=== PATIENT | female | born 1950 | race Caucasian/White ===

== ENCOUNTER 2021-04-25 10:26 | Emergency (ER) | payer OTHER, MEDICAID ==
[~2021-04-25] VITALS: Ht 160 cm; Wt 69.8 kg
[~2021-04-25 10:26] MED LIST: PROTONIX40 M1 PO; REMERON15 MG PO
[2021-04-25 10:53] LABS: ABSOLUTE LYMPHOCYTES 5.2 thou/uL (0.8-5.3); ABSOLUTE NEUTROPHILS 7.1 thou/uL (1.6-8.1); BASOPHILS 0.3 %; EOSINOPHILS 0.3 %; HEMATOCRIT 34.4 % (37.0-47.0); HEMOGLOBIN 11.5 gm/dL (12.0-15.0); LYMPHOCYTES 38.8 %; MCH 30.2 pg (26.0-34.0); MCHC 33.3 g/dL (28.0-37.0); MCV 90.6 fL (80.0-100.0); MONOCYTES 7.6 %; MPV 7.8 fl. (7.2-11.1); NUCLEATED RBCS 0 /100WBC; PLATELET COUNT* 198 thou/uL (150-400); RDW-CV 13.2 % (10.5-14.5); WBC 13.3 thou/uL (4.0-11.0)
[2021-04-25] MEDS ORDERED: PRINIVIL40 MG PO (10:59)
[2021-04-25] MEDS ORDERED: CARVEDILOL3.125 MG PO (10:59)
[2021-04-25] MEDS ORDERED: DULOXETINE HCL60 MG PO (10:59)
[2021-04-25] MEDS ORDERED: COLESTIPOL HCL1 G1 PO (11:00)
[2021-04-25] MEDS ORDERED: CELECOXIB100 MG PO (11:00)
[2021-04-25 11:01] LABS: CALCIUM 8.1 mg/dL (8.5-10.1); CREATININE 1.5 mg/dL (0.6-1.3); POTASSIUM 3.8 mmol/L (3.5-5.1)
[2021-04-25] MEDS ORDERED: ASA81BEC PO (11:01)
[2021-04-25] MEDS ORDERED: LIPITOR40 MG PO (11:01)
[2021-04-25 11:06] LABS: ALBUMIN 3.5 g/dL (3.4-5.0); TOTAL BILIRUBIN 0.3 mg/dL (<0.1-1.0); TOTAL PROTEIN 6.6 g/dL (6.4-8.2)
--- NOTE | 2021-04-25 11:50 | EKG ---
[place] [address] ELECTROCARDIOGRAM REPORT Name: MARC NICOLE Room: [facility]#: [id number] Admission: 04/25/21 Attend Phys: Discharge: Date of : 48 Date of Service: 04/25/21 1045 Report #: [id number] THIS REPORT FOR: //name// [facility] ED Test Date: 2021-04-25 Test Time: 10:45:28 Pat Name: MARC NICOLE Department: Room: Gender: Sampler First: : 1950 Requested By: Wilmar Bermudez Order Number: [id number] MD: Morales Torres Measurements Intervals [place] Rate: 63 P: 78 HI: 160 QRS: 45 QRSD: 91 T: 47 QT: 410 QTc: 420 Interpretive Statements Sinus rhythm Abnormal R-wave progression, early transition Borderline ST elevation, lateral leads No previous ECG available for comparison Electronically Signed On 04-25-2021 11:50:12 CDT by Morales Torres [email or web address] <ELECTRONICALLY SIGNED> By: Morales Torres MD, [facility] 04/25/21 1150 1045 1045 Morales Torres MD, [facility] /EPI
[2021-04-25 12:31] VITALS: BP 153/65
== END 2021-04-25 12:31 | disposition home or self-care (01) ==
LOC: M.ERS 10:26
PROVIDERS: Family Medicine
DX: R20.2 Paresthesia of skin (principal); J44.9 Chronic obstructive pulmonary disease, unspecified; I10 Essential (primary) hypertension; Z95.5 Presence of coronary angioplasty implant and graft; Z79.899 Other long term (current) drug therapy; Z79.82 Long term (current) use of aspirin; Z88.6 Allergy status to analgesic agent; Z88.5 Allergy status to narcotic agent

== ENCOUNTER 2021-12-01 13:49 | Inpatient (IN) | payer OTHER, MEDICAID ==
[~2021-12-01] VITALS: Ht 162.6 cm; Wt 72.3 kg
[~2021-12-01 13:49] MED LIST changes: +ASA81BEC PO; +CARVEDILOL3.125 MG PO; +CELECOXIB100 MG PO; +COLESTIPOL HCL1 G1 PO; +DULOXETINE HCL60 MG PO; +LIPITOR40 MG PO; +PRINIVIL40 MG PO
[2021-12-01 14:32] LABS: ABSOLUTE LYMPHOCYTES 1.1 thou/uL (0.8-5.3); ABSOLUTE MONOCYTES 0.6 thou/uL (0.0-1.2); ABSOLUTE NEUTROPHILS 3.1 thou/uL (1.6-8.1); BASOPHILS 0.4 %; EOSINOPHILS 0.1 %; HEMATOCRIT 31.8 % (37.0-47.0); HEMOGLOBIN 10.5 gm/dL (12.0-15.0); MCH 28.6 pg (26.0-34.0); MCHC 33.1 g/dL (28.0-37.0); MCV 86.3 fL (80.0-100.0); MPV 7.1 fl. (7.2-11.1); NUCLEATED RBCS 0 /100WBC; PLATELET COUNT* 159 thou/uL (150-400); POLYS 64.5 %; RBC 3.69 mil/uL (4.20-5.00); RDW-CV 15.1 % (10.5-14.5); WBC 4.9 thou/uL (4.0-11.0)
[2021-12-01 14:40] LABS: CALCIUM 7.7 mg/dL (8.5-10.1); CREATININE 1.5 mg/dL (0.6-1.3); POTASSIUM 3.6 mmol/L (3.5-5.1)
[2021-12-01 14:44] LABS: ALBUMIN 2.8 g/dL (3.4-5.0); TOTAL BILIRUBIN 0.6 mg/dL (<0.1-1.0); TOTAL PROTEIN 6.4 g/dL (6.4-8.2)
[2021-12-01 14:46] VITALS: BP 114/64
[2021-12-01 22:00] VITALS: BP 132/51
[2021-12-02 00:23] LABS: URINE BILIRUBIN NEGATIVE (Negative); URINE BLOOD NEGATIVE (Negative); URINE COLOR YELLOW; URINE GLUCOSE-RANDOM NEGATIVE (Negative); URINE KETONES TRACE (Negative); URINE LEUKOCYTES 1+ (Negative); URINE NITRITE POSITIVE (Negative); URINE PROTEIN TRACE (Negative); URINE SPECIFIC GRAVITY 1.025 (1.005-1.030); URINE UROBILINOGEN 0.2 E.U./dl (0.2-1.0)
[2021-12-02 00:27] LABS: URINE CLARITY SL HAZY
[2021-12-02 00:38] LABS: BACTERIA >30 Many /HPF (None Seen); CELLULAR CASTS 0-3 Few /LPF (None Seen); COARSE GRANULAR CASTS 0-3 Few /LPF (None Seen); CRYSTALS None Seen /LPF (None Seen); FINE GRANULAR CASTS 0-3 Few /LPF (None Seen); MUCUS 4-6 Moderate strn/LPF (None Seen); SQUAMOUS 0-3 Few /LPF (0-3); URINE RBC 3-10 Few /HPF (0-2); URINE WBC >25 Many /HPF (0-5); WBC CLUMPS Few (None Seen)
[2021-12-02 05:30] VITALS: BP 153/62
[2021-12-02 08:13] LABS: CALCIUM 7.8 mg/dL (8.5-10.1); CREATININE 1.4 mg/dL (0.6-1.3); POTASSIUM 3.9 mmol/L (3.5-5.1)
--- NOTE | 2021-12-02 09:12 | EKG ---
[place] [address] ELECTROCARDIOGRAM REPORT Name: MARC NICOLE Room: [place] [address] ADM IN ..#: [id number] Admission: 12/01/21 Attend Phys: Nakia Echavarria Discharge: Date of : 48 Date of Service: 12/01/21 1438 Report #: [id number] THIS REPORT FOR: //name// [facility] ED Test Date: 2021-12-01 Test Time: 14:38:39 Pat Name: MARC NICOLE Department: Room: [place] [address] Gender: F Pants Maker: : 1950 Requested By: Rob Valderrama Order Number: [id number] MD: Morales Torres Measurements Intervals [place] Rate: 57 P: 34 MA: 165 QRS: 12 QRSD: 90 T: 28 QT: 488 QTc: 476 Interpretive Statements Sinus rhythm Abnormal R-wave progression, early transition Borderline prolonged QT interval Compared to ECG 04/25/2021 10:45:28 ST (T wave) deviation no longer present Electronically Signed On 12-02-2021 9:12:11 [employer]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
[2021-12-02 09:45] VITALS: BP 140/60
[2021-12-02 13:00] VITALS: BP 173/54
[2021-12-02 15:45] VITALS: BP 141/67
[2021-12-02 18:20] VITALS: BP 141/67
[2021-12-02 19:45] VITALS: BP 148/53
[2021-12-03] VITALS: BP 162/68
[2021-12-03 00:52] LABS: URINE BILIRUBIN NEGATIVE (Negative); URINE BLOOD NEGATIVE (Negative); URINE CLARITY CLEAR; URINE COLOR YELLOW; URINE GLUCOSE-RANDOM NEGATIVE (Negative); URINE KETONES NEGATIVE (Negative); URINE LEUKOCYTES NEGATIVE (Negative); URINE NITRITE NEGATIVE (Negative); URINE PROTEIN NEGATIVE (Negative); URINE UROBILINOGEN 0.2 E.U./dl (0.2-1.0)
[2021-12-03 04:00] VITALS: BP 148/65
[2021-12-03 08:00] VITALS: BP 141/63
[2021-12-03 12:20] VITALS: BP 175/83
[2021-12-03 16:00] VITALS: BP 154/66
[2021-12-03 17:24] LABS: HEMATOCRIT 33.3 % (37.0-47.0); HEMOGLOBIN 10.7 gm/dL (12.0-15.0); MCH 27.9 pg (26.0-34.0); MCHC 32.2 g/dL (28.0-37.0); MCV 86.8 fL (80.0-100.0); MPV 7.3 fl. (7.2-11.1); NUCLEATED RBCS 0 /100WBC; RBC 3.84 mil/uL (4.20-5.00); RDW-CV 14.8 % (10.5-14.5); WBC 12.8 thou/uL (4.0-11.0)
[2021-12-03 17:27] LABS: PLATELET COUNT* 234 thou/uL (150-400)
[2021-12-03 17:32] LABS: CREATININE 1.2 mg/dL (0.6-1.3); POTASSIUM 3.9 mmol/L (3.5-5.1)
[2021-12-03 17:41] LABS: ABSOLUTE LYMPHOCYTES 1.4 thou/uL (0.8-5.3); ABSOLUTE MONOCYTES 0.3 thou/uL (0.0-1.2); ABSOLUTE NEUTROPHILS 11.1 thou/uL (1.6-8.1); PLATELET ESTIMATE ADEQUATE
[2021-12-03 20:00] VITALS: BP 170/76
[2021-12-04] VITALS: BP 145/76
[2021-12-04 04:00] VITALS: BP 185/85
[2021-12-04 08:00] VITALS: BP 185/83
[2021-12-04 12:43] VITALS: BP 122/63
[2021-12-04 17:13] VITALS: BP 145/66
[2021-12-04 20:00] VITALS: BP 156/66
[2021-12-05 00:05] VITALS: BP 123/50
[2021-12-05 04:00] VITALS: BP 163/70
[2021-12-05 05:13] LABS: ABSOLUTE LYMPHOCYTES 2.1 thou/uL (0.8-5.3); ABSOLUTE MONOCYTES 1.4 thou/uL (0.0-1.2); ABSOLUTE NEUTROPHILS 8.6 thou/uL (1.6-8.1); BASOPHILS 0.1 %; HEMATOCRIT 33.1 % (37.0-47.0); HEMOGLOBIN 10.9 gm/dL (12.0-15.0); LYMPHOCYTES 17.3 %; MCV 84.9 fL (80.0-100.0); MONOCYTES 11.3 %; MPV 7.8 fl. (7.2-11.1); NUCLEATED RBCS 0 /100WBC; PLATELET COUNT* 287 thou/uL (150-400); POLYS 71.3 %; WBC 12.1 thou/uL (4.0-11.0)
[2021-12-05 05:26] LABS: CALCIUM 8.1 mg/dL (8.5-10.1); CREATININE 1.2 mg/dL (0.6-1.3); POTASSIUM 3.9 mmol/L (3.5-5.1)
[2021-12-05 07:00] VITALS: BP 152/76
[2021-12-05 09:35] VITALS: BP 152/76
[2021-12-05 12:00] VITALS: BP 175/87
[2021-12-05 20:47] VITALS: BP 151/69
[2021-12-06] VITALS: BP 155/44
[2021-12-06 04:00] VITALS: BP 172/76
[2021-12-06 04:20] LABS: HEMATOCRIT 29.9 % (37.0-47.0); HEMOGLOBIN 9.9 gm/dL (12.0-15.0); MCV 84.7 fL (80.0-100.0); MPV 7.3 fl. (7.2-11.1); RBC 3.53 mil/uL (4.20-5.00); RDW-CV 14.8 % (10.5-14.5); WBC 10.5 thou/uL (4.0-11.0)
[2021-12-06 04:39] LABS: ALBUMIN 2.3 g/dL (3.4-5.0); CALCIUM 7.6 mg/dL (8.5-10.1); CREATININE 1.2 mg/dL (0.6-1.3); MAGNESIUM 1.6 mg/dL (1.8-2.4); TOTAL BILIRUBIN 0.4 mg/dL (<0.1-1.0); TOTAL PROTEIN 5.1 g/dL (6.4-8.2)
[2021-12-06 08:00] VITALS: BP 158/66
[2021-12-06 14:06] VITALS: BP 160/72
[2021-12-06 18:51] VITALS: BP 143/55
[2021-12-06 20:15] VITALS: BP 135/56
[2021-12-07] VITALS: BP 152/77
[2021-12-07 04:00] VITALS: BP 126/64
[2021-12-07 07:41] VITALS: BP 166/76
[2021-12-07] MEDS ORDERED: DEXAMETHASONE 22 M1 PO (11:14)
[2021-12-07] MEDS ORDERED: CEFDINIR300 MG PO (11:14)
[2021-12-07] MEDS ORDERED: DOXYCYCLINE 10100 MG PO (11:14)
[2021-12-07 12:00] VITALS: BP 162/72
[2021-12-07 16:00] VITALS: BP 154/69
[2021-12-07 20:32] VITALS: BP 188/90
[2021-12-08] VITALS: BP 172/73
[2021-12-08 04:06] VITALS: BP 183/79
[2021-12-08 04:47] LABS: HEMOGLOBIN 9.9 gm/dL (12.0-15.0); MCH 28.3 pg (26.0-34.0); MCHC 32.9 g/dL (28.0-37.0); MCV 86.1 fL (80.0-100.0); MPV 7.5 fl. (7.2-11.1); RBC 3.48 mil/uL (4.20-5.00); RDW-CV 14.5 % (10.5-14.5); WBC 10.9 thou/uL (4.0-11.0)
[2021-12-08 05:30] LABS: ALBUMIN 2.5 g/dL (3.4-5.0); CALCIUM 7.9 mg/dL (8.5-10.1); MAGNESIUM 1.7 mg/dL (1.8-2.4); POTASSIUM 3.6 mmol/L (3.5-5.1); TOTAL BILIRUBIN 0.5 mg/dL (<0.1-1.0); TOTAL PROTEIN 5.3 g/dL (6.4-8.2)
[2021-12-08] MEDS ORDERED: REMERON30 MG PO (07:03)
[2021-12-08] MEDS ORDERED: REMERON 30 MG T30 M1 PO (07:03)
[2021-12-08 07:35] VITALS: BP 170/69
[2021-12-08 12:00] VITALS: BP 170/72
[2021-12-08 16:00] VITALS: BP 129/69
[2021-12-08 20:27] VITALS: BP 154/59
[2021-12-09] VITALS: BP 151/79
[2021-12-09 04:00] VITALS: BP 178/73
[2021-12-09 09:50] VITALS: BP 123/66
[2021-12-09 12:00] VITALS: BP 144/69
[2021-12-09 18:15] VITALS: BP 102/65
== END 2021-12-09 19:30 | DRG 177 ==
LOC: M.ERS 13:49 → M.TBA-ER 15:12 → M.ORTHSURG 12-02 19:00
PROVIDERS: Emergency Medicine; Internal Medicine; Nurse Practitioner Family; ADMIT Internal Medicine; ATTEND Internal Medicine
PROC: XW033E5 Introduction of Remdesivir Anti-infective into Peripheral Vein, Percutaneous Approach, New Technology Group 5 (ICD-10-PCS; principal; 2021-12-02)
PROC: 5A09357 Assistance with Respiratory Ventilation, Less than 24 Consecutive Hours, Continuous Positive Airway Pressure (ICD-10-PCS; 2021-12-08)
DX: U07.1 COVID-19 (principal); J96.01 Acute respiratory failure with hypoxia; E43 Unspecified severe protein-calorie malnutrition; J15.9 Unspecified bacterial pneumonia; N17.0 Acute kidney failure with tubular necrosis; N30.00 Acute cystitis without hematuria; J44.0 Chronic obstructive pulmonary disease with (acute) lower respiratory infection; Z68.27 Body mass index [BMI] 27.0-27.9, adult; Z88.8 Allergy status to other drugs, medicaments and biological substances; Z79.899 Other long term (current) drug therapy; B96.1 Klebsiella pneumoniae [K. pneumoniae] as the cause of diseases classified elsewhere; F17.210 Nicotine dependence, cigarettes, uncomplicated; Z86.73 Personal history of transient ischemic attack (TIA), and cerebral infarction without residual deficits